=== PATIENT | female | born 1985 | race Caucasian/White ===

== ENCOUNTER 2022-04-26 09:57 | Inpatient (IN) | payer BC ==
[2022-04-23 10:09] LABS: Hemoglobin 11.4 g/dL (12.0-15.5); Platelet Count 173 10x3/uL (150-450)
[2022-04-23 10:43] LABS: HBSAg Index 0.16 S/CO (0-0.99); Hep B Surf Ag Non-Reactive S/CO (NonReactive)
[2022-04-23 10:44] LABS: Syphilis Antibody Nonreactive (Nonreactive); Syphilis Antibody Index 0.02 S/CO (<1.00 Non-Reactive)
[2022-04-23 10:51] LABS: SARS-CoV-2 NAA Rapid Test Not Detected (NotDetected)
[2022-04-26] MEDS ORDERED: Bicitra 30 ML UDCUP PO PRN (10:13)
[2022-04-26] MEDS ORDERED: Famotidine/PF 20 mg/2ml Vial SLOW IVP PRN (10:13)
[2022-04-26] MEDS ORDERED: Morphine PF 10 MG/10 ML VIAL ONE (11:07)
[2022-04-26] MEDS ORDERED: Dexamethasone 4 mg/ml Vial ONE (11:07)
[2022-04-26] MEDS ORDERED: Ondansetron PF 4 MG/2 ML Vial ONE (11:07)
[2022-04-26] MEDS ORDERED: Phenylephrine 40 MG/NS 250 ML 250 ML ONE (11:08)
[2022-04-26] MEDS ORDERED: Ketorolac Tromethamine 30 MG/ML VIAL ONE (11:08)
[2022-04-26] MEDS ORDERED: Oxytocin 10 UNITS/ML VIAL ONE (11:08)
[2022-04-26 11:14] VITALS: BMI 32.5
[2022-04-26] MEDS ORDERED: CEFAZOLIN 2 GM in Sodium Chloride 0.9% 100 ML IVPB SCH (11:30)
[2022-04-26] MEDS ORDERED: PROPOFOL 20 ML ONE (12:27)
[2022-04-26] MEDS ORDERED: Naloxone HCl 0.4 mg/ml Vial IVP PRN ×2 (13:00)
[2022-04-26] MEDS ORDERED: Communication Order-Pharmacy FS SCH (13:00)
[2022-04-26] MEDS ORDERED: Ondansetron PF 4 MG/2 ML Vial IVP PRN ×2 (13:00→15:29)
[2022-04-26] MEDS ORDERED: Naloxone HCl 0.4 mg/ml Vial IV PRN (13:00)
[2022-04-26] MEDS ORDERED: Promethazine HCl 25 MG/ML VIAL IM PRN ×2 (13:00→15:29)
[2022-04-26] MEDS ORDERED: diphenhydrAMINE 50 MG/ML VIAL IVP PRN (13:00)
[2022-04-26] MEDS ORDERED: Promethazine HCl 25 MG SUPP PR PRN (13:00)
[2022-04-26] MEDS ORDERED: Moisturizing Cream (Eucerin) 113 GM JAR TOP PRN (13:00)
[2022-04-26] MEDS ORDERED: hydrALAZINE 20 MG/ML VIAL SLOW IVP PRN (15:29)
[2022-04-26] MEDS ORDERED: Lanolin Ointment 7 GM TUBE TOP PRN (15:29)
[2022-04-26] MEDS ORDERED: Bisacodyl 10 MG SUPP PR PRN (15:29)
[2022-04-26] MEDS ORDERED: Acetaminophen 325 MG TAB PO PRN (15:29)
[2022-04-26] MEDS ORDERED: diphenhydrAMINE 25 MG CAP PO PRN (15:29)
[2022-04-26] MEDS ORDERED: Boostrix 0.5 ML (Tdap) VIAL (>/=7 yrs of age) IM ONE (15:29)
[2022-04-26] MEDS ORDERED: Simethicone Chewable 80 MG TAB PO PRN (15:29)
[2022-04-26] MEDS ORDERED: HYDROcodone/Acetaminophen 5/325 mg Tablet PO PRN (15:29)
[2022-04-26] MEDS: Docusate 100 MG CAP PO SCH (22:05)
[2022-04-26] MEDS: Ferrous Sulfate 325 MG TAB PO SCH (22:05)
[2022-04-27] MEDS: Ketorolac Tromethamine 30 MG/ML VIAL IVP PRN ×2 (01:53→08:17)
[2022-04-27 05:25] LABS: Hemoglobin 9.1 g/dL (12.0-15.5); Mean Corpuscular HGB CONC 35.7 g/dL (32.0-36.0); Mean Corpuscular Hemoglobin 32.6 pg (27.0-33.0); Mean Corpuscular Volume 91.4 fl (81.6-98.3); Platelet Count 152 10x3/uL (150-450); RBC Distribution Width 12.2 % (11.5-14.5); Red Blood Cell (RBC) Count 2.79 10x6/uL (3.90-5.03); White Blood Cell (WBC) Count 12.8 10x3/uL (3.5-10.5)
[2022-04-27] MEDS: Docusate 100 MG CAP PO SCH ×2 (08:12→21:11)
[2022-04-27] MEDS: HYDROcodone/Acetaminophen 5/325 mg Tablet PO PRN ×3 (08:14→17:18)
[2022-04-27] MEDS: Prenatal Vitamin 1 TAB PO SCH (08:14)
[2022-04-27] MEDS: Ferrous Sulfate 325 MG TAB PO SCH ×2 (08:14→21:11)
[2022-04-27] MEDS: Ibuprofen 800 MG TAB PO SCH ×2 (14:20→21:11)
[2022-04-28] MEDS: HYDROcodone/Acetaminophen 5/325 mg Tablet PO PRN ×5 (03:17→22:34)
[2022-04-28] MEDS: Ibuprofen 800 MG TAB PO SCH ×3 (05:37→21:36)
[2022-04-28] MEDS: Docusate 100 MG CAP PO SCH ×2 (07:18→21:36)
[2022-04-28] MEDS: Ferrous Sulfate 325 MG TAB PO SCH ×2 (07:18→21:36)
[2022-04-28] MEDS: Prenatal Vitamin 1 TAB PO SCH (07:18)
[2022-04-28 20:19] VITALS: TEMP 97.6
[2022-04-29] MEDS: Ibuprofen 800 MG TAB PO SCH ×2 (05:08→13:59)
[2022-04-29] MEDS: HYDROcodone/Acetaminophen 5/325 mg Tablet PO PRN ×2 (06:28→10:44)
[2022-04-29] MEDS: Ferrous Sulfate 325 MG TAB PO SCH (08:05)
[2022-04-29] MEDS: Prenatal Vitamin 1 TAB PO SCH (08:05)
[2022-04-29] MEDS: Docusate 100 MG CAP PO SCH (08:05)
[2022-04-29 08:10] VITALS: BP 118/69
== END 2022-04-29 14:30 | disposition home or self-care (01) | DRG 785 ==
LOC: CSHLD 09:57 → CSHPP 15:15
PROVIDERS: ADMIT Student in an Organized Health Care Education/Training Program; ATTEND Student in an Organized Health Care Education/Training Program
PROC: 10D00Z1 Extraction of Products of Conception, Low, Open Approach (ICD-10-PCS; principal; 2022-04-26)
PROC: 0UT70ZZ Resection of Bilateral Fallopian Tubes, Open Approach (ICD-10-PCS; 2022-04-26)
DX: O34.211 Maternal care for low transverse scar from previous cesarean delivery (principal); Z20.822 Contact with and (suspected) exposure to COVID-19; Z3A.39 39 weeks gestation of pregnancy; Z37.0 Single live birth
CPT/HCPCS: 36415; 51702; 85014; 85018; 85027; 85049; 86780; 86850; 86900; 86901; 87340; 88304; J1100; J1885; J2274; J2405; J2590; J2704; S0028; U0002